=== PATIENT | female | born 2000 | race Caucasian/White ===

== ENCOUNTER 2022-12-29 05:32 | Inpatient (IN) ==
[2022-12-29] MEDS ORDERED: Sodium Citrate/Citric Acid LIQ 15 ML UDC PO ONE (06:00)
[2022-12-29] MEDS ORDERED: ceFOXitin 2 GM IVPREMIX 2 GM/50 ML BAG IVPB ONE (06:00)
[2022-12-29] MEDS ORDERED: Lactated Ringers 1000 ml BAG 1,000 ML IV ONE (06:00)
[2022-12-29] MEDS ORDERED: Buffered Lidocaine 1% SYRIN 1 ml INTRADERM ONE (06:00)
[2022-12-29 06:29] LABS: ABS Eosinophils 0.1 10^3/uL (0.0-0.5); ABS Lymphocytes 1.4 10^3/uL (1.0-4.8); ABS Monocytes 0.8 10^3/uL (0.0-0.9); ABS Neutrophils 5.6 10^3/uL (1.5-7.6); Hematocrit 37.5 % (35-45); Lymphocyte % 18.1 %; Mean Corpuscular Hgb Conc 34.7 g/dL (31-36); Mean Corpuscular Volume 92.1 fL (80-97); Mean Platelet Volume 8.6 fL (7.5-11.2); Platelet Count 212 10^3/uL (150-450); Red Blood Count 4.07 10^6/uL (3.63-4.92); Red Cell Distribution Width 13.3 % (12-17); White Blood Count 7.9 10^3/uL (3.8-11.8)
[2022-12-29] MEDS ORDERED: Lactated Ringers 1000 ml BAG 1,000 ML IV SCH (07:00)
[2022-12-29] MEDS ORDERED: Morphine PF AMP (0.5MG/ML) 5 MG/10 ML AMP ONE (07:41)
[2022-12-29] MEDS ORDERED: Oxytocin 10 UNITS/ML 1 ML VIAL ONE (07:46)
[2022-12-29] MEDS ORDERED: Phenylephrine 40 mcg/mL 10mL (400mcg) SYRINGE ONE (07:46)
[2022-12-29] MEDS ORDERED: Ondansetron 4 mg VIAL 2 MG/ML 2 ml VIAL ONE (07:46)
[2022-12-29] MEDS ORDERED: miSOPROStol 100 mcg TAB PO ONE ×3 (09:04→13:15)
[2022-12-29 09:26] LABS: Urine Benzodiazepine Screen None Detected (None Detect); Urine Cannabinoids Screen None Detected (None Detect); Urine Opiates Screen None Detected (None Detect)
[2022-12-29 12:02] LABS: Hepatitis C Antibody Negative (Negative)
[2022-12-29] MEDS ORDERED: Dinoprostone 10 MG VAG.SUPP VAGINAL ONE (20:08)
[2022-12-30] MEDS ORDERED: Oxytocin in LR 20,000 MILLI.UNIT/1,000 ML BAG IV SCH ×2 (10:20→21:20)
[2022-12-30] MEDS ORDERED: Lactated Ringers 1000 ml BAG 1,000 ML IV SCH ×2 (12:00→17:00)
[2022-12-30] MEDS ORDERED: OBEPIDURAL (200 ML) 200 ML EPIDURAL ONE (14:10)
[2022-12-30] MEDS ORDERED: Lidocaine 1% w EPI 1:200,000 SDV 30 ML VIAL ONE (14:12)
[2022-12-30] MEDS ORDERED: Sodium Citrate/Citric Acid LIQ 15 ML UDC PO PRN (16:01)
[2022-12-30] MEDS ORDERED: Phenylephrine 40 mcg/mL 10mL (400mcg) SYRINGE IV PUSH PRN ×2 (16:01)
[2022-12-30] MEDS ORDERED: Lactated Ringers 1000 ml BAG 1,000 ML IV ONE (16:01)
[2022-12-30 16:27] LABS: Urine Appearance Clear; Urine Bilirubin Negative (Negative); Urine Blood Negative (Negative); Urine Color Straw; Urine Glucose Negative (Negative); Urine Ketones Negative (Negative); Urine Nitrite Negative (Negative); Urine Protein Negative (Negative); Urine Specific Gravity 1.005 (1.002-1.030); Urine Urobilinogen Negative (Negative)
[2022-12-30] MEDS ORDERED: OBEPIDURAL (200 ML) 200 ML EPIDURAL SCH (17:00)
[2022-12-30] MEDS ORDERED: Glycerin ADULT 2.4 gm SUPP PR PRN (21:17)
[2022-12-30] MEDS ORDERED: Witch Hazel PAD JAR TOPICAL PRN (21:17)
[2022-12-30] MEDS ORDERED: Dibucaine 1% OINT 28.35 GM TUBE PR PRN (21:17)
[2022-12-30] MEDS ORDERED: Lidocaine 1% VIAL 10 MG/ML VIAL 30 ML ONE (23:32)
[2022-12-31 07:24] LABS: ABS Lymphocytes 1.2 10^3/uL (1.0-4.8); ABS Neutrophils 8.1 10^3/uL (1.5-7.6); Eosinophil % 0.1 %; Hemoglobin 11.4 g/dL (11.5-14.3); Lymphocyte % 11.6 %; Mean Corpuscular Hgb Conc 34.6 g/dL (31-36); Mean Corpuscular Volume 92.6 fL (80-97); Mean Platelet Volume 8.9 fL (7.5-11.2); Platelet Count 182 10^3/uL (150-450); Red Blood Count 3.56 10^6/uL (3.63-4.92); Red Cell Distribution Width 13.3 % (12-17); White Blood Count 10.3 10^3/uL (3.8-11.8)
[2023-01-01 08:34] VITALS: BP 108/42
== END 2023-01-01 15:45 | disposition home or self-care (01) | DRG 560 ==
LOC: MCHOB 05:32
PROVIDERS: ADMIT Midwife; ATTEND Midwife